=== PATIENT | male | born 1995 | race Caucasian/White ===

== ENCOUNTER 2022-06-13 20:26 | Outpatient (CLI) | payer OTHER, SELFPAY | END 2022-06-13 20:27 | disposition home or self-care (01) | PROVIDERS: Visit Provider Family Medicine | DX: R56.9 Unspecified convulsions (principal) | CPT/HCPCS: A0425; A0427 ==

== ENCOUNTER 2022-06-13 21:07 | Emergency (ER) | payer OTHER, SELFPAY ==
[2022-06-13] VITALS (27 sets, daily range): BP systolic 112–176; BP diastolic 64–121; PULSE 92–279; RESP 20; TEMP 36.3; O2SAT 94–98
--- NOTE | 2022-06-13 21:22 | ED_ITS ---
HPI - Seizure General Time Seen by Provider: 21:23 Date Seen: 06/13/22 Chief Complaint: Seizure Stated Complaint: SEIZURE Time Seen by Provider: 06/13/22 21:22 Source: patient, EMS and RN notes reviewed Mode of arrival: EMS Limitations: no limitations History of Present Illness HPI Narrative: Patient is brought in by EMS from bachelor alliance party/wedding where he was dancing. They went to take a picture under bright lights in the started feeling some tingling on his back of his neck and it started to spread. He felt his body 10 seen, his friend reportedly caught him and lowered him to the ground. In the ambulance with the lights on he reportedly had another tonic clonic seizure eyes rolled to right. Kaitlin the paramedics/RN administered 5 mg intranasal Versed w ith cessation of this. He felt that 1 where he felt tingly in his body and started to spread. The paramedics did note tonic clonic movement in eyes deviated to the right. Patient feels like he could tell he was starting to go into his seizure than as well. He has never had any prior seizure disorder. There has been no head trauma. He notes he has not been sleeping well due to stress with grad school. He is doing neuro science in grad school. He is not aware of any family history of seizures. He has not smoked marijuana in over a year, no drug use. Did have about 5 alcoholic beverages throughout the day but states when they gave him a Breathalyzer it was 0. Related Data Home Medications Medication Instructions Recorded Confirmed fluoxetine 40 mg capsule (Prozac) 40 mg PO DAILY 06/13/22 06/13/22 gabapentin 600 mg tablet 600 mg PO DAILY 06/13/22 06/13/22 lisinopril 20 mg tablet 20 mg PO DAILY 06/13/22 06/13/22 Previous Rx's Medication Instructions Recorded levetiracetam 750 mg tablet 750 mg PO BID #60 tabs 06/13/22 (Keppra) levetiracetam 750 mg tablet 750 mg PO BID #60 tabs 06/13/22 (Keppra) Allergies Allergy/AdvReac Type Severity Reaction Status Date / Time No Known Drug Allergies Allergy Verified 06/13/22 21:21 [facility] Medical History (Updated 06/13/22 @ 23:39 by Dori Wesley MD) Hypertension Social History Smoking Status: Unknown if ever smoked How often do you have a drink containing alcohol: 2-4 times a month How many standard drinks containing alcohol do you have on a typical day: 3 or 4 How often do you have six or more drinks on one occasion: Never AUDIT-C Alcohol total score: 3 Non-prescribed substance use: denies use service: No Exam Const: Vital Signs, click to edit/add: Vital Signs - 24 hr 06/13/22 21:15 06/13/22 21:32 06/13/22 21:21 Temperature 97.4 F L Pulse Rate 124 H Pulse Rate [Left P ulse Oximeter] 131 H Respiratory Rate 20 Blood Pressure 141/80 H Blood Pressure [Le ft Upper Arm] 146/80 H Pulse Oximetry 95 95 94 Oxygen Delivery Me thod Room Air 06/13/22 21:22 06/13/22 21:31 06/13/22 21:32 Temperature Pulse Rate 125 H 133 H 122 H Pulse Rate [Left P ulse Oximeter] Respiratory Rate Blood Pressure 135/76 Blood Pressure [Le ft Upper Arm] Pulse Oximetry 95 97 96 Oxygen Delivery Me thod 06/13/22 21:41 06/13/22 21:42 06/13/22 22:08 Temperature Pulse Rate 127 H 117 H 130 H Pulse Rate [Left P ulse Oximeter] Respiratory Rate Blood Pressure 112/64 Blood Pressure [Le ft Upper Arm] Pulse Oximetry 96 95 97 Oxygen Delivery Me thod 06/13/22 22:12 06/13/22 22:13 06/13/22 22:22 Temperature Pulse Rate 279 H 246 H 253 H Pulse Rate [Left P ulse Oximeter] Respiratory Rate Blood Pressure 135/79 153/85 H Blood Pressure [Le ft Upper Arm] Pulse Oximetry 95 96 97 Oxygen Delivery Me thod 06/13/22 22:23 06/13/22 22:30 06/13/22 22:31 Temperature Pulse Rate 218 H Pulse Rate [Left P ulse Oximeter] Respiratory Rate Blood Pressure 163/104 H Blood Pressure [Le ft Upper Arm] Pulse Oximetry 97 94 96 Oxygen Delivery Me thod 06/13/22 22:40 06/13/22 22:42 06/13/22 22:50 Temperature Pulse Rate 103 H 101 H 105 H Pulse Rate [Left P ulse Oximeter] Respiratory Rate Blood Pressure 164/115 H Blood Pressure [Le ft Upper Arm] Pulse Oximetry 96 96 97 Oxygen Delivery Me thod 06/13/22 22:52 06/13/22 22:53 06/13/22 23:00 Temperature Pulse Rate 103 H 104 H 96 Pulse Rate [Left P ulse Oximeter] Respiratory Rate Blood Pressure 170/116 H Blood Pressure [Le ft Upper Arm] Pulse Oximetry 97 97 97 Oxygen Delivery Me thod 06/13/22 23:01 06/13/22 23:12 06/13/22 23:15 Temperature Pulse Rate 102 H 202 H Pulse Rate [Left P ulse Oximeter] Respiratory Rate Blood Pressure 175/114 H 176/121 H Blood Pressure [Le ft Upper Arm] Pulse Oximetry 96 96 Oxygen Delivery Me thod 06/13/22 23:20 06/13/22 23:22 06/13/22 23:30 Temperature Pulse Rate 92 187 H 101 H Pulse Rate [Left P ulse Oximeter] Respiratory Rate Blood Pressure 151/104 H Blood Pressure [Le ft Upper Arm] Pulse Oximetry 95 97 98 Oxygen Delivery Me thod 06/13/22 23:31 Temperature Pulse Rate 96 Pulse Rate [Left P ulse Oximeter] Respiratory Rate Blood Pressure 168/119 H Blood Pressure [Le ft Upper Arm] Pulse Oximetry 97 Oxygen Delivery Me thod Documenting provider has reviewed patient's vital signs: yes Common normals: no apparent distress, average body habitus, oriented x3, no l imitations, healthy appearing, alert and well nourished General appearance: cooperative, comfortable, well kempt and anxious HENMT: Common normals: normocephalic, head/scalp atraumatic, hearing grossly normal bilaterally, external ears normal, EAC's normal, external nose normal, nasal mucous membranes and turbinates normal, moist oral mucous membranes, oropharynx normal, dentition normal and gingiva normal Head and scalp: normocephalic and atraumatic Nose: external nose normal and nasal mucous membranes and turbinates normal External ear: external ears normal External auditory canal: EAC's normal Eye: Common normals: PERRL, EOMs intact bilaterally, conjunctivae normal and no scleral icterus Conjunctiva: conjunctiva(e) normal Pupil: PERRL Neck & C-Spine: Common normals: full ROM, no lymphadenopathy, supple, no meningeal signs, no JVD and thyroid normal Thyroid: thyroid normal Chest: Common normals: inspection of chest normal and palpation of chest normal Resp: Common normals: normal respiratory effort, no retractions, no use of accessory muscles and clear to auscultation bilaterally Auscultation: clear to auscultation bilaterally Cardio: Common normals: no JVD, regular rhythm, S1 normal heart sound, S2 normal heart sound, no gallops, no clicks and no murmurs Rate: tachycardic Rhythm: regular rhythm Heart sounds: S1 normal and S2 normal GI: Common normals: Normal to inspection, nondistended, normoactive bowel sounds present, soft to palpation, non-tender, no hepatosplenomegaly and no masses Palpation: soft and no hepatosplenomegaly Extremity: Common normals: normal to inspection, full ROM, normal capillary refill, no joint enlargement, no clubbing, cyanosis or edema, no calf tenderness and no pedal edema Neuro: [place] Coma Scale: document GCS findings [place] coma scale eye opening: Spontaneous (4) [place] coma scale verbal response: Orientated (5) [place] coma scale motor response: Obey commands (6) [place] coma scale total score: 15 Common normals: oriented x3, CN's II-XII intact bilaterally, moves all extremities, no focal motor deficits and no sensory deficits noted Sensorium/orientation: alert Meningeal signs: no meningeal signs Speech: speech normal Other: Mildly tremulous in his upper extremities but admits he is feeling anxious. Psych: Common normals: mental status grossly normal, thought process normal, cooperative, affect normal, speech normal and activity/motor behavior normal Appearance: well kempt Speech: normal speech Thought process: normal thought process Course Consultations Consultation #1: Spoke with the epilepsy neurologist on-call through [facility]. Given that this patient will be flying back to grad school, did recommend prophylactic treatment with Keppra. He did recommend loading with 1 g IV and then 750 mg b.i.d.. Patient's mom is here now and reviewed the situation. Did review the liver enzymes being up and patient admitted that he had been drinking a lot the last couple of weeks. He is going to refrain from drinking and then have his liver enzymes rechecked in 2-4 weeks which I think is appropriate. His blood pressure has been elevated but he admits he has not taken his lisinopril for his hypertension. His pulses back down into the 90s. Awaiting repeat lactate after 1L NS. Time: 23:21 Vital Signs Vital signs: Initial Vital Signs Temperature 97.4 F L 06/13/22 21:15 Temperature Source Temporal Artery Scan 06/13/22 21:15 Pulse Rate 131 H 06/13/22 21:15 Pulse Rhythm 06/13/22 21:15 Respiratory Rate 20 06/13/22 21:15 Blood Pressure 146/80 H 06/13/22 21:15 Blood Pressure Mean 102 06/13/22 21:15 Pulse Oximetry 95 06/13/22 21:15 Oxygen Delivery Method 06/13/22 21:15 Vital Signs Temperature 97.4 F L 06/13/22 21:15 Pulse Rate 131 H 06/13/22 21:15 Respiratory Rate 20 06/13/22 21:15 Blood Pressure 146/80 H 06/13/22 21:15 Pulse Oximetry 95 06/13/22 21:15 Oxygen Delivery Method 06/13/22 21:15 Temperature 97.4 F L 06/13/22 21:15 Pulse Rate 96 06/13/22 23:31 Respiratory Rate 20 06/13/22 21:15 Blood Pressure 168/119 H 06/13/22 23:31 Pulse Oximetry 97 06/13/22 23:31 Oxygen Delivery Method 06/13/22 21:15 MDM - Seizure Lab Data Attestation: I reviewed the patient's lab results. Labs: Lab Results 06/13/22 06/13/22 06/13/22 Range/Units 21:32 21:40 21:40 WBC 7.98 (4.50-11.00) K/uL RBC 4.08 L (4.30-5.90) m/uL Hgb 14.0 (13.5-17.5) gm/dL Hct 39.0 (37.0-53.0) % MCV 96 (80-100) fL MCH 34 (26-34) pg MCHC 36 (32-36) gm/dL RDW Coeff of Shantanu 11.1 L (11.5-15.5) % Plt Count 221 (140-440) K/uL Neut % (Auto) 81.7 H (42.0-72.0) % Lymph % (Auto) 8.5 L (20-44) % [place] % (Auto) 7.9 (0.0-11.0) % Eos % (Auto) 0.4 (0.0-7.0) % Baso % (Auto) 0.5 (0.0-3.0) % Neut # (Auto) 6.50 (1.7-7.0) K/uL Lymph # (Auto) 0.70 L (0.90-2.90) K/uL [place] # (Auto) 0.60 (0.00-0.90) K/UL Eos # (Auto) 0.03 (0.00-0.50) K/uL Baso # (Auto) 0.04 (0.00-0.30) K/uL Abs Immat Gran (auto) 0.08 (0.00-0.30) K/uL Sodium 135 (135-149) mmol/L Potassium 4.1 (3.6-5.1) mmol/L Chloride 104 (96-114) mmol/L Carbon Dioxide 16 L (20-32) mmol/L BUN 11 (5-24) mg/dL Creatinine 0.7 (0.5-1.5) mg/dL Estimated GFR 129 ml/min Glucose 154 H (60-115) mg/dL Lactate (0.5-1.9) mmol/L Calcium 9.0 (8.4-10.6) mg/dL Total Bilirubin 0.7 (0.1-1.5) mg/dL AST 259 H (12-35) U/L ALT 156 H (4-50) U/L Alkaline Phosphatase 103 (40-150) U/L Total Protein 7.1 (6.0-8.3) g/dL Albumin 4.6 (3.3-5.0) g/dL TSH (0.270-4.200) uIU/mL Urine Opiates Screen (Negative) Ur Oxycodone Screen (Negative) Urine Methadone Screen (Negative) Ur Propoxyphene Screen (Negative) Ur Barbiturates Screen (Negative) U Tricyclic Antidepress (Negative) Ur Phencyclidine Scrn (Negative) Ur Amphetamines Screen (Negative) U Methamphetamines Scrn (Negative) U Benzodiazepines Scrn (Negative) Urine Cocaine Screen (Negative) U Marijuana (THC) Screen (Negative) Ur Drug Screen Comment Ethyl Alcohol < 0.01 L (0.01-0.03) % POC Troponin I 0.01 (0.01-0.04) ng/ml 06/13/22 06/13/22 06/13/22 Range/Units 21:40 21:40 23:15 WBC (4.50-11.00) K/uL RBC (4.30-5.90) m/uL Hgb (13.5-17.5) gm/dL Hct (37.0-53.0) % MCV (80-100) fL MCH (26-34) pg MCHC (32-36) gm/dL RDW Coeff of Shantanu (11.5-15.5) % Plt Count (140-440) K/uL Neut % (Auto) (42.0-72.0) % Lymph % (Auto) (20-44) % [place] % (Auto) (0.0-11.0) % Eos % (Auto) (0.0-7.0) % Baso % (Auto) (0.0-3.0) % Neut # (Auto) (1.7-7.0) K/uL Lymph # (Auto) (0.90-2.90) K/uL [place] # (Auto) (0.00-0.90) K/UL Eos # (Auto) (0.00-0.50) K/uL Baso # (Auto) (0.00-0.30) K/uL Abs Immat Gran (auto) (0.00-0.30) K/uL Sodium (135-149) mmol/L Potassium (3.6-5.1) mmol/L Chloride (96-114) mmol/L Carbon Dioxide (20-32) mmol/L BUN (5-24) mg/dL Creatinine (0.5-1.5) mg/dL Estimated GFR ml/min Glucose (60-115) mg/dL Lactate 6.5 H* (0.5-1.9) mmol/L Calcium (8.4-10.6) mg/dL Total Bilirubin (0.1-1.5) mg/dL AST (12-35) U/L ALT (4-50) U/L Alkaline Phosphatase (40-150) U/L Total Protein (6.0-8.3) g/dL Albumin (3.3-5.0) g/dL TSH 4.120 (0.270-4.200) uIU/mL Urine Opiates Screen Negative (Negative) Ur Oxycodone Screen Negative (Negative) Urine Methadone Screen Negative (Negative) Ur Propoxyphene Screen Negative (Negative) Ur Barbiturates Screen Negative (Negative) U Tricyclic Antidepress Negative (Negative) Ur Phencyclidine Scrn Negative (Negative) Ur Amphetamines Screen Negative (Negative) U Methamphetamines Scrn Negative (Negative) U Benzodiazepines Scrn Negative (Negative) Urine Cocaine Screen Negative (Negative) U Marijuana (THC) Screen Negative (Negative) Ur Drug Screen Comment See Note Ethyl Alcohol (0.01-0.03) % POC Troponin I (0.01-0.04) ng/ml Imaging Data CT scan - head: Attestation: I have reviewed the pertinent imaging results. Radiologist's impression: Patient: MARIBEL BOOGIE Facility:?[facility] Patient ID:?[id number] Site Patient ID:?[id number]. Site :?[id number] Study:?CT Head -06/13/2022 10:02:49 PM Ordering Physician:Doni Meadows Final Report: INDICATION: New onset seizure. Technique: Noncontrast head CT. FINDINGS: No acute intracranial hemorrhage, mass effect, or evidence for acute infarction. There is diffuse cerebral and cerebellar atrophy out of proportion to the patient`s age. Normal mccain-white differentiation. No skull fractures. Visualized paranasal sinuses and mastoid air cells are clear. IMPRESSION: 1. No acute intracranial findings. 2. Atrophy out of proportion to the patient`s age. Dictated by Axel Skinner MD @ 06/13/2022 10:24:54 PM Please note that all CT scans at this facility use dose modulation, iterative reconstruction, and/or weight-based dosing when appropriate to reduce radiation dose to as low as reasonably achievable. Dictated by: Axel Skinner MD @ 06/13/2022 22:24:59 (Electronic Signature) ECG Data Attestation: I personally reviewed and interpreted this ECG as follows: (Sinus tachycardia, 136 beats per minute.) Critical Care Time Critical Care Time Critical Care Time: No Discharge Plan Discharge Clinical Impression: Elevated liver enzymes, New onset seizure Condition: Stable Instructions: New-Onset Seizure in Adults (ED) Additional Instructions: Need to take Keppra 750 mg twice daily until further advised by Neurology. Your going to need to see Neurology, consider an MRI and have EEG monitoring done for further evaluation of the seizures. You are not to drive, no swimming or any bathing in tub water where you could potentially drown with a recurrent seizure,, until seizure disorder has been ruled out. You also will need your liver enzymes rechecked in about 2-4 weeks, refrain from alcohol. Prescriptions: New levetiracetam [Keppra] 750 mg tablet 750 mg PO BID Qty: 60 2RF levetiracetam [Keppra] 750 mg tablet 750 mg PO BID Qty: 60 0RF No Action lisinopril 20 mg tablet 20 mg PO DAILY gabapentin 600 mg tablet 600 mg PO DAILY fluoxetine [Prozac] 40 mg capsule 40 mg PO DAILY Follow Up/Referrals: Provider,Not a Local [Primary Care Provider] - Stand Alone Forms: [facility] Info Instructions
--- NOTE | 2022-06-13 21:32 | CRLHL7_ITS ---
For Patients: As a result of the Century Cures Act, medical imaging exams and procedure reports are released immediately into your electronic medical record. You may view this report before your referring provider. If you have questions, please contact your health care provider. INDICATION: New onset seizure. Technique: Noncontrast head CT. FINDINGS: No acute intracranial hemorrhage, mass effect, or evidence for acute infarction. There is diffuse cerebral and cerebellar atrophy out of proportion to the patient`s age. Normal mccain-white differentiation. No skull fractures. Visualized paranasal sinuses and mastoid air cells are clear. IMPRESSION: 1. No acute intracranial findings. 2. Atrophy out of proportion to the patient`s age. Dictated by Axel Skinner MD @ 06/13/2022 10:24:54 PM Please note that all CT scans at this facility use dose modulation, iterative reconstruction, and/or weight-based dosing when appropriate to reduce radiation dose to as low as reasonably achievable. Dictated by: Axel Skinner MD @ 06/13/2022 22:24:59 (Electronically Signed)
[2022-06-13 21:56] LABS: Basophils Absolute Auto 0.04 K/uL (0.00-0.30); Basophils Percent Auto 0.5 % (0.0-3.0); Eosinophils Absolute Auto 0.03 K/uL (0.00-0.50); Eosinophils Percent Auto 0.4 % (0.0-7.0); Immature Granulocytes Abs Auto 0.08 K/uL (0.00-0.30); Lymphocytes Percent Auto 8.5 % (20-44); Mean Corpuscular HGB Conc 36 gm/dL (32-36); Mean Corpuscular Hemoglobin 34 pg (26-34); Mean Corpuscular Volume 96 fL (80-100); Monocytes Percent Auto 7.9 % (0.0-11.0); Neutrophils Percent Auto 81.7 % (42.0-72.0); Platelet Count* 221 K/uL (140-440); RDW Coefficient of Variation % 11.1 % (11.5-15.5); Red Blood Count 4.08 m/uL (4.30-5.90); White Blood Count* 7.98 K/uL (4.50-11.00)
[2022-06-13 21:57] LABS: Lactate* 6.5 mmol/L (0.5-1.9)
[2022-06-13 21:58] LABS: Slide Review Reflex No
--- NOTE | 2022-06-13 21:58 | ED.NURSE ---
pt given water, 8 oz, ok'd per .
--- NOTE | 2022-06-13 21:58 | ED.NURSE ---
Critical: Lactate 6.5, handed to at 2272
[2022-06-13 22:12] LABS: Albumin* 4.6 g/dL (3.3-5.0); Chloride* 104 mmol/L (96-114); Sodium* 135 mmol/L (135-149)
[2022-06-13 22:13] LABS: Potassium* 4.1 mmol/L (3.6-5.1)
[2022-06-13 22:15] LABS: Alkaline Phosphatase* 103 U/L (40-150); Aspartate Amino Transferase* 259 U/L (12-35); Bilirubin Total* 0.7 mg/dL (0.1-1.5); Blood Urea Nitrogen* 11 mg/dL (5-24); Carbon Dioxide* 16 mmol/L (20-32); Creatinine* 0.7 mg/dL (0.5-1.5); Estimated Glomerular Filt Rate 129 ml/min; Glucose* 154 mg/dL (60-115); Total Protein* 7.1 g/dL (6.0-8.3)
[2022-06-13] MEDS: 0.9 % SODIUM CHLORIDE 1000 ml 1,000 ML IV (22:15)
[2022-06-13 22:17] LABS: Ethanol* < 0.01 % (0.01-0.03)
[2022-06-13 22:21] LABS: Alanine Aminotransferase* 156 U/L (4-50)
[2022-06-13 22:23] LABS: Troponin, Point-of-Care* 0.01 ng/ml (0.01-0.04)
[2022-06-13 23:33] LABS: Amphetamine Screen Urine Negative (Negative); Barbiturate Screen Urine Negative (Negative); Benzodiazepines Screen Urine Negative (Negative); Cannabinoid Screen Urine Negative (Negative); Cocaine Screen Urine Negative (Negative); Methadone Screen Urine Negative (Negative); Methamphetamines Screen Urine Negative (Negative); Opiate Screen Urine Negative (Negative); Oxycodone Screen Urine Negative (Negative); Phencyclidine Screen Urine Negative (Negative); Tricyclic Antidepressant Urine Negative (Negative)
== END 2022-06-14 00:29 | disposition home or self-care (01) ==
PROVIDERS: Emergency Provider Family Medicine
DX: G40.409 Other generalized epilepsy and epileptic syndromes, not intractable, without status epilepticus (principal); R94.5 Abnormal results of liver function studies
CPT/HCPCS: 36415; 70450; 80053; 80306; 82077; 83605; 84443; 84484; 85025; 93005; 94761; 96365; 99284; 99285; J1953; J7030